=== PATIENT | female | born 1985 | race African-American/Black ===

== ENCOUNTER 2020-12-29 01:37 | Emergency (ER) | payer OTHER ==
[~2020-12-29] VITALS: Ht 165.1 cm; Wt 145.2 kg
[2020-12-29] MEDS ORDERED: PERCOCET 10-321 EAC1 PO ×2 (01:53→06:06)
[2020-12-29] MEDS ORDERED: JANTOVEN5 MG PO (01:53)
[2020-12-29] MEDS ORDERED: HYDREA 500 MG500 M1 PO (01:53)
[2020-12-29 04:57] LABS: ABSOLUTE EOSINOPHILS 0.1 thou/uL (0.0-0.7); ABSOLUTE LYMPHOCYTES 1.7 thou/uL (0.8-5.3); ABSOLUTE MONOCYTES 0.3 thou/uL (0.0-1.2); ABSOLUTE NEUTROPHILS 2.6 thou/uL (1.6-8.1); BASOPHILS 0.9 %; EOSINOPHILS 2.1 %; HEMATOCRIT 26.4 % (37.0-47.0); HEMOGLOBIN 7.3 gm/dL (12.0-15.0); LYMPHOCYTES 35.7 %; MCH 21.2 pg (26.0-34.0); MCHC 27.7 g/dL (28.0-37.0); MCV 76.4 fL (80.0-100.0); MONOCYTES 6.6 %; MPV 6.9 fl. (7.2-11.1); NUCLEATED RBCS 0 /100WBC; PLATELET COUNT* 423 thou/uL (150-400); POLYS 54.7 %; RBC 3.46 mil/uL (4.20-5.00); RDW-CV 25.4 % (10.5-14.5); WBC 4.8 thou/uL (4.0-11.0)
[2020-12-29 04:58] LABS: CALCIUM 7.8 mg/dL (8.5-10.1); CREATININE 0.6 mg/dL (0.6-1.3); POTASSIUM 3.9 mmol/L (3.5-5.1)
[2020-12-29 04:59] LABS: PROTIME 10.9 Seconds (9.20-11.50)
[2020-12-29 05:03] LABS: ALBUMIN 3.1 g/dL (3.4-5.0); TOTAL BILIRUBIN 0.1 mg/dL (<0.1-1.0)
[2020-12-29 06:47] LABS: HYPOCHROMASIA 3+; MICROCYTES 2+; PLATELET ESTIMATE INCREASED
[2020-12-29 06:48] LABS: POLYCHROMASIA Occasional
[2020-12-29 06:50] LABS: ANISOCYTOSIS 3+; OVALOCYTES Occasional; SCHISTOCYTES Occasional
[2020-12-29 07:11] VITALS: BP 145/60
== END 2020-12-29 07:11 | disposition home or self-care (01) ==
LOC: M.ERS 01:37
PROVIDERS: Personal Emergency Response Attendant
DX: D57.00 Hb-SS disease with crisis, unspecified (principal); R52 Pain, unspecified; Z90.710 Acquired absence of both cervix and uterus; Z90.49 Acquired absence of other specified parts of digestive tract; Z98.890 Other specified postprocedural states; Z79.899 Other long term (current) drug therapy